=== PATIENT | male | born 1985 | race African-American/Black ===

== ENCOUNTER 2021-10-30 17:31 | Emergency (ER) | payer BC ==
[~2021-10-30] VITALS: Ht 175.3 cm; Wt 89.0 kg
[2021-10-30 18:32] VITALS: BP 121/77
[2021-10-31 01:03] LABS: BASOPHILS % 0.5 % (0.0-2.0); EOSINOPHILS % 1.5 % (0.0-5.0); HEMATOCRIT. 42.1 % (42.0-52.0); HEMOGLOBIN. 13.9 g/dL (14.0-18.0); LYMPHOCYTES % 39.1 % (20.0-50.0); MEAN CORPUSCULAR HEMOGLOBIN 29.3 pg (28.0-32.0); MEAN CORPUSCULAR VOLUME 88.8 fL (80.0-94.0); MONOCYTES % 8.9 % (2.0-8.0); PLATELET 266 x1000/uL (130-400); RED BLOOD CELL COUNT 4.74 mill/uL (4.7-6.1); RED CELL DISTRIBUTION WIDTH 12.7 % (11.6-14.6)
[2021-10-31 01:18] LABS: CHLORIDE 106 mEq/L (98-107)
== END 2021-10-31 02:13 | disposition home or self-care (01) ==
LOC: ER 17:31
DX: M79.661 Pain in right lower leg (principal); G89.29 Other chronic pain; R55 Syncope and collapse
CPT/HCPCS: 36415; 71045; 80053; 85025; 93005; 99285